=== PATIENT | female | born 1970 | race African-American/Black ===

== ENCOUNTER 2016-10-02 16:41 | Emergency (ER) | payer BC ==
[~2016-10-02] VITALS: Ht 167.6 cm; Wt 83.9 kg
[~2016-10-02 16:41] MED LIST: CILOXAN5 ML OP; DOXYCYCLINE 10100 MG PO; PERCOCET 5-3251 EACH PO
[2016-10-02 17:26] LABS: ABSOLUTE NEUTROPHILS 2.8 thou/uL (1.4-8.2); HEMATOCRIT 23.5 % (37.0-47.0); HEMOGLOBIN 7.3 gm/dL (12.0-15.0); LYMPHOCYTES 19.9 % (24.0-44.0); MONOCYTES 7.3 % (1.0-8.0); PLATELET COUNT 349 thou/uL (150-400); POLYS 63.8 % (36.0-66.0); RBC 3.18 mil/uL (4.20-5.00); RDW 19.4 % (10.5-14.5); WBC 4.4 thou/uL (4.0-11.0)
[2016-10-02 17:27] LABS: MANUAL DIFF NO
[2016-10-02 17:35] LABS: CALCIUM 8.4 mg/dL (8.5-10.1); CREATININE 0.9 mg/dL (0.6-1.0); POTASSIUM 3.7 mmol/L (3.5-5.1)
[2016-10-02 17:40] LABS: ALBUMIN 3.4 g/dL (3.4-5.0); TOTAL BILIRUBIN 0.2 mg/dL (<0.1-1.0); TOTAL PROTEIN 6.9 g/dL (6.4-8.2)
[2016-10-02 17:44] LABS: APTT 22.7 Seconds (24.5-32.8); PROTIME 9.6 Seconds (9.3-11.4)
[2016-10-02] MEDS ORDERED: NAPROSYN500 MG PO (18:09)
[2016-10-02] MEDS ORDERED: IRON325 PO (18:09)
[2016-10-02 18:59] VITALS: BP 136/84
[2016-10-02 19:23] LABS: ANISOCYTOSIS 3+; MICROCYTES 1+
[2016-10-02 19:24] LABS: HYPOCHROMASIA 1+; OVALOCYTES OCCASIONAL; POIKILOCYTOSIS 1+; POLYCHROMASIA OCCASIONAL
== END 2016-10-02 19:01 | disposition home or self-care (01) ==
LOC: ER 16:41
PROVIDERS: Emergency Medicine
DX: D64.9 Anemia, unspecified (principal); D25.9 Leiomyoma of uterus, unspecified; F10.99 Alcohol use, unspecified with unspecified alcohol-induced disorder